=== PATIENT | female | born 1995 | race Caucasian/White ===

== ENCOUNTER 2017-10-12 11:36 | Emergency (ER) | payer SELFPAY ==
[~2017-10-12] VITALS: Ht 165.1 cm; Wt 91.0 kg
[~2017-10-12 11:36] MED LIST: PRIL20CA PO
[2017-10-12 11:37] VITALS: BP 129/70; PULSE 74; RESP 18; TEMP 98.6; O2SAT 100
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
== END 2017-10-12 11:53 | disposition left against medical advice (07) ==
LOC: NEPK 11:36
DX: S00.33XA Contusion of nose, initial encounter (principal); W50.0XXA Accidental hit or strike by another person, initial encounter
CPT/HCPCS: 99281

== ENCOUNTER 2017-12-12 08:57 | Observation (INO) | payer BC ==
[~2017-12-12] VITALS: Ht 165.1 cm; Wt 86.5 kg
[2017-12-12] VITALS (7 sets, daily range): BP systolic 104–126; BP diastolic 52–68; PULSE 52–118; RESP 16–20; TEMP 97.6–102.2; O2SAT 97–100
--- NOTE | 2017-12-12 09:29 | PD ---
HPI Chief Complaint: Cold / Flu Symptoms Time Seen by Provider: 09:15 Travel History International Travel<30 days: No Contact w/Intl Traveler<30days: No Traveled to known affect area: No History of Present Illness HPI 22yo F with PMH of pancreatitis presents to the ED with multiple complaints for 1 week. Said she has been having flu like symptoms such as cough, feeling hot/ cold, ear pain, decreased appetite, nausea. Pt also vomited today and had some abdominal discomfort but no pain right now. +Increased urinary frequency. Pt went to walk in clinic 3 days ago and was given azithromycin for URI. Denies any chest pain, sob, diarrhea, dysuria, hematuria, vaginal bleeding or discharge , focal weakness or numbness. PFSH Past Medical History Diminished Hearing: No Immunizations Current: Yes ?: Not LMP: NOV 2017 Past Surgical History Abdominal Surgery: No Cardiac Surgery: No Ear Surgery: No Endocrine Surgery: No Eye Surgery: No Genitourinary Surgery: No Gynecologic Surgery: No Neurologic Surgery: No Oral Surgery: No Thoracic Surgery: No Tonsillectomy: Yes Social History Alcohol Use: No Tobacco Use: No Substance Use: No Allergies-Medications (Allergen,Severity, Reaction): Coded Allergies: penicillin G (Unverified Allergy, Mild, Rash, 12/12/17) Reported Meds & Prescriptions Reported Meds & Active Scripts Active Reported Prilosec 20 mg (Omeprazole) 20 Mg Cap 40 Mg PO DAILY 30 Days TAKE 40MG ONCE DAILY FOR 30 DAYS. Review of Systems Except as stated in HPI: all other systems reviewed are Neg Physical Exam Narrative GENERAL: 22yo F in mild distress. SKIN: Focused skin assessment warm/dry. HEAD: Atraumatic. Normocephalic. EYES: Pupils equal and round. No scleral icterus. No injection or drainage. ENT: No nasal bleeding or discharge. Mucous membranes pink and moist. NECK: Trachea midline. No JVD. CARDIOVASCULAR: Mildly tachycardic. No murmur appreciated. RESPIRATORY: No accessory muscle use. Clear to auscultation. Breath sounds equal bilaterally. GASTROINTESTINAL: Abdomen soft, non-tender, nondistended. No rebound tenderness or guarding. MUSCULOSKELETAL: No obvious deformities. No clubbing. No cyanosis. No edema. NEUROLOGICAL: Awake and alert. No obvious cranial nerve deficits. Motor grossly within normal limits. Sensation intact. Normal speech. PSYCHIATRIC: Appropriate mood and affect; insight and judgment normal. Data Data Last Documented VS Vital Signs Date Time Temp Pulse Resp B/P (MAP) Pulse Ox O2 Delivery O2 Flow Rate FiO2 12/12/17 10:20 54 20 106/59 (75) 98 Room Air 12/12/17 09:02 97.7 Orders Orders Complete Blood Count With Diff (12/12/17 09:22) Comprehensive Metabolic Panel (12/12/17 09:22) Lipase (12/12/17 09:22) Urinalysis - C+S If Indicated (12/12/17 09:22) Ed Urine Pregnancytest Poc (12/12/17 09:22) Chest, Single Ap (12/12/17 ) Influenzae A/B Antigen (12/12/17 09:22) Sodium Chlor 0.9% 1000 Ml Inj (Ns 1000 M (12/12/17 09:30) Ondansetron Inj (Zofran Inj) (12/12/17 09:30) Urine Culture (12/12/17 09:40) Blood Culture (12/12/17 10:48) Lactic Acid Sepsis Protocol (12/12/17 10:48) Ciprofloxacin 400 Mg Premix (Cipro 400 M (12/12/17 11:00) Admit Order (Ed Use Only) (12/12/17 11:12) Labs Laboratory Tests Test 12/12/17 09:35 12/12/17 09:40 White Blood Count 7.6 TH/MM3 Red Blood Count 5.05 MIL/MM3 Hemoglobin 14.6 GM/DL Hematocrit 42.5 % Mean Corpuscular Volume 84.2 FL Mean Corpuscular Hemoglobin 28.9 PG Mean Corpuscular Hemoglobin Concent 34.3 % Red Cell Distribution Width 13.0 % Platelet Count 118 TH/MM3 Mean Platelet Volume 9.3 FL Neutrophils (%) (Auto) 39.0 % Lymphocytes (%) (Auto) 54.5 % Monocytes (%) (Auto) 5.5 % Eosinophils (%) (Auto) 0.6 % Basophils (%) (Auto) 0.4 % Neutrophils # (Auto) 3.0 TH/MM3 Lymphocytes # (Auto) 4.2 TH/MM3 Monocytes # (Auto) 0.4 TH/MM3 Eosinophils # (Auto) 0.0 TH/MM3 Basophils # (Auto) 0.0 TH/MM3 CBC Comment AUTO DIFF Differential Total Cells Counted 100 Neutrophils % (Manual) 38 % Band Neutrophils % 8 % Lymphocytes % 32 % Monocytes % 5 % Basophils % 3 % Neutrophils # (Manual) 3.5 TH/MM3 Differential Comment FINAL DIFF MANUAL Atypical Lymphocytes 14 % Platelet Estimate LOW Platelet Morphology Comment NORMAL Red Cell Morphology Comment NORMAL Blood Urea Nitrogen 10 MG/DL Creatinine 0.96 MG/DL Random Glucose 103 MG/DL Total Protein 8.0 GM/DL Albumin 4.3 GM/DL Calcium Level 9.5 MG/DL Alkaline Phosphatase 259 U/L Aspartate Amino Transf (AST/SGOT) 299 U/L Alanine Aminotransferase (ALT/SGPT) 529 U/L Total Bilirubin 0.7 MG/DL Sodium Level 138 MEQ/L Potassium Level 3.9 MEQ/L Chloride Level 102 MEQ/L Carbon Dioxide Level 25.2 MEQ/L Anion Gap 11 MEQ/L Estimat Glomerular Filtration Rate 74 ML/MIN Lipase 323 U/L Urine Color DARK-YELLOW Urine Turbidity HAZY Urine pH 6.0 Urine Specific [place] 1.028 Urine Protein 100 mg/dL Urine Glucose (UA) NEG mg/dL Urine Ketones NEG mg/dL Urine Occult Blood TRACE Urine Nitrite NEG Urine Bilirubin NEG Urine Urobilinogen 4.0 MG/DL Urine Leukocyte Esterase MOD Urine RBC 1 /hpf Urine WBC 10 /hpf Urine Squamous Epithelial Cells 6 /hpf Urine Bacteria OCC /hpf Urine Hyaline Casts 29 /lpf Urine Mucus FEW /lpf Microscopic Urinalysis Comment CULTURE INDICATED MDM Medical Decision Making Medical Screen Exam Complete: Yes Emergency Medical Condition: Yes Differential Diagnosis Influenza vs. viral syndrome vs. UTI vs. pneumonia Narrative Course 22yo F with flu like symptoms for 1 week. Labs reviewed, no leukocytosis but new thrombocytopenia at 118,000 and bandemia at 8%. Pt is tachycardic at 118bpm. LFTs elevated but pt has no abdominal pain. Likely viral. UA showed moderate leukocyte. WBC 10. +Hyaline casts. Pt given cipro IV and NS IVF. Pt reevaluated at bedside and feels a little better. Will observe pt overnight with IV antibiotics given bandemia, dehydration and new thrombocytopenia. Pt has no primary care physician. Discussed with Dr. Hussein and accepted to his service. Diagnosis Primary Impression: UTI (urinary tract infection) Qualified Codes: N39.0 - Urinary tract infection, site not specified Additional Impression: Dehydration Admitting Information Admitting Physician Requests: Observation Brigitte Lyon DO Dec 12, 2017 09:29
[2017-12-12] MEDS ORDERED: SODIUM CHLOR 0.9% 1000 ML INJ 1,000 ML IV ONE (09:30)
[2017-12-12] MEDS ORDERED: ONDANSETRON HCL 4 MG/2 ML VIAL IV PUSH ONE (09:30)
--- NOTE | 2017-12-12 09:59 | RADRPT ---
EXAM DATE/TIME: 12/12/2017 09:44 [place] COMPARISON: No previous studies available for comparison. INDICATIONS : Cough, shortness of breath, and fever. MEDICAL HISTORY : None. SURGICAL HISTORY : None. ENCOUNTER: Initial ACUITY: 4 - 6 days PAIN SCORE: 0/10 LOCATION: chest FINDINGS: A single view of the chest demonstrates the lungs to be symmetrically aerated without evidence of mas s, infiltrate or effusion. The cardiomediastinal contours are unremarkable. Osseous structures are intact. CONCLUSION: Normal examination. William Aguero Jr., MD on December 12, 2017 at 9:58 Board Certified Radiologist. This report was verified electronically.
[2017-12-12 10:01] LABS: BASOPHIL % 0.4 % (0.0-2.0); EOSINOPHIL % 0.6 % (0.0-4.0); HEMATOCRIT 42.5 % (35.0-46.0); HEMOGLOBIN 14.6 GM/DL (11.6-15.3); LYMPH % 54.5 % (9.0-44.0); LYMPHOCYTE # 4.2 TH/MM3 (1.0-4.8); MEAN CELL VOLUME 84.2 FL (80.0-100.0); MEAN CORPUSCULAR HEMOGLOBIN 28.9 PG (27.0-34.0); MEAN CORPUSCULAR HGB CONC 34.3 % (32.0-36.0); MEAN PLATELET VOLUME 9.3 FL (7.0-11.0); MONO % 5.5 % (0.0-8.0); MONOCYTE # 0.4 TH/MM3 (0-0.9); PLATELET COUNT 118 TH/MM3 (150-450); RED BLOOD COUNT 5.05 MIL/MM3 (4.00-5.30); WHITE BLOOD COUNT 7.6 TH/MM3 (4.0-11.0)
[2017-12-12 10:11] LABS: BACTERIA, URINE OCC /hpf; BLOOD, URINE TRACE (NEG); GLUCOSE,URINE NEG (NEG); HYALINE CAST, URINE 29 /lpf (RARE); KETONE, URINE NEG (NEG); MUCUS URINE FEW /lpf (OCC); NITRITE,URINE NEG (NEG); SQUAMOUS EPITHELIAL CELL URINE 6 /hpf (0-5); URINE COLOR DARK-YELLOW (YELLW/STRAW); URINE LEUKOCYTE ESTERASE MOD (NEG)
[2017-12-12 10:13] LABS: BILIRUBIN, URINE NEG (NEG)
[2017-12-12 10:25] LABS: ALBUMIN 4.3 GM/DL (3.4-5.0); ALT (GPT) 529 U/L (9-42); AST (GOT) 299 U/L (16-38); BICARBONATE 25.2 MEQ/L (21.0-32.0); BLOOD UREA NITROGEN 10 MG/DL (7-18); CALCIUM 9.5 MG/DL (8.5-10.1); CHLORIDE 102 MEQ/L (98-107); CREATININE 0.96 MG/DL (0.50-1.00); GLOMERULAR FILTRATION RATE 74 ML/MIN (>89); GLUCOSE,RANDOM 103 MG/DL (74-106); SODIUM (NA) 138 MEQ/L (136-145)
[2017-12-12 10:28] LABS: ALKALINE PHOSPHATASE 259 U/L (45-117); TOTAL BILIRUBIN ADULT 0.7 MG/DL (0.2-1.0)
[2017-12-12 10:34] LABS: ATYPICAL LYMPHOCYTES 14 % (0-0); BANDS 8 % (0-6); BASOPHILS 3 % (0-2); LYMPHOCYTES 32 % (9-44); MONOCYTES 5 % (0-8); NEUTROPHIL # MANUAL DIFF 3.5 TH/MM3 (1.8-7.7); POLYS (SEG NEUTROPHILS) 38 % (16-70)
[2017-12-12] MEDS ORDERED: CIPROFLOXACIN 400 MG PREMIX 200 ML IV ONE (11:00)
[2017-12-12] MEDS ORDERED: oxyCODONE/ACETAMINOPHEN 10 MG/325 MG TAB PO PRN (11:15)
[2017-12-12] MEDS ORDERED: ACETAMINOPHEN 325 MG TAB PO PRN ×2 (11:15)
[2017-12-12] MEDS ORDERED: LACTULOSE SYRUP 20 GM/30 ML CUP PO PRN (11:15)
[2017-12-12] MEDS ORDERED: SENNOSIDES 8.6 MG TAB PO PRN (11:15)
[2017-12-12] MEDS ORDERED: ONDANSETRON HCL 4 MG/2 ML VIAL IVP PRN (11:15)
[2017-12-12] MEDS ORDERED: oxyCODONE/ACETAMINOPHEN 5 MG/325 MG TAB PO PRN (11:15)
[2017-12-12] MEDS ORDERED: MORPHINE SULFATE 2 MG/ML INJ IV PUSH PRN ×2 (11:15)
[2017-12-12] MEDS ORDERED: MAGNESIUM HYDROXIDE SUSP 30 ML CUP PO PRN (11:15)
[2017-12-12] MEDS ORDERED: SODIUM CHLORIDE 0.9% FLUSH 10 ML FLUSH IV FLUSH PRN (11:15)
[2017-12-12] MEDS ORDERED: METOCLOPRAMIDE HCL 10 MG/2 ML VIAL IV PUSH PRN (11:15)
[2017-12-12] MEDS ORDERED: NALOXONE HCL 0.4 MG/ML AMP IV PUSH PRN (11:15)
[2017-12-12] MEDS ORDERED: BISACODYL 10 MG SUPP RECTAL PRN (11:15)
--- NOTE | 2017-12-12 11:38 | HHI.HP ---
[facility] Primary Care Physician No Primary Care Physician Admission Diagnosis UTI, dehydration, bandemia Diagnoses: (1) Elevated LFTs Diagnosis: Principal (2) Nausea & vomiting Diagnosis: Secondary (3) UTI (urinary tract infection) Diagnosis: Principal (4) Dehydration Diagnosis: Principal Chief Complaint: Cold and flulike symptoms Travel History International Travel<30 Days: No Contact w/Intl Traveler <30 Da: No Traveled to Known Affected Are: No History of Present Illness Patient is a 22-year-old female. Presented to the emergency department with complaint of cold-like symptoms for the past week. She has been having flulike symptoms such as cough, feeling hot and cold, ear pain, decreased appetite and some nausea. Had some vomiting today. And some abdominal discomfort no pain right now. Patient has had some increased urinary frequency. She was seen in a walk-in clinic 3 days ago was given azithromycin for URI. Denies any chest pain shortness of breath denies any diarrhea denies any hematuria denies any vaginal bleeding or discharge denies any focal weakness or numbness patient's past medical history significant for pancreatitis and tonsillectomy Review of Systems Constitutional: COMPLAINS OF: Fatigue, Fever, Chills, Change in appetite, DENIES: Diaphoretic episodes, Weight gain, Weight loss, Dizziness Endocrine: DENIES: Abnorml menstrual pattern, Heat/cold intolerance, Polydipsia , Polyuria, Polyphagia Eyes: DENIES: Blurred vision, Diplopia, Eye inflammation, Eye pain, Vision loss , Photosensitivity Ears, nose, mouth, throat: DENIES: Tinnitus, Hearing loss, Vertigo, Nasal discharge, Oral lesions, Throat pain, Hoarseness, Ear Pain, Running Nose Respiratory: DENIES: Apneas, Cough, Snoring, Wheezing, Hemoptysis, Sputum production, Shortness of breath Cardiovascular: DENIES: Chest pain, Palpitations, Syncope, Dyspnea on Exertion , PND, Lower Extremity Edema, Orthopnea Gastrointestinal: DENIES: Abdominal pain, Black stools, Bloody stools, Constipation, Diarrhea, Nausea, Vomiting, Difficulty Swallowing Genitourinary: COMPLAINS OF: Urinary frequency, Urgency, DENIES: Abnormal vaginal bleeding, Dysmenorrhea, Dyspareunia, Sexual dysfunction, Urinary incontinence, Hematuria, Dysuria, Nocturia, Vaginal discharge Musculoskeletal: COMPLAINS OF: Muscle aches, DENIES: Joint pain, Stiffness, Joint Swelling, Back pain Integumentary: DENIES: Abnormal pigmentation, Pruritus, Rash, Nail changes, Breast masses, Breast skin changes Hematologic/lymphatic: DENIES: Bruising, Lymphadenopathy Immunologic/allergic: DENIES: Eczema, Urticaria Neurologic: COMPLAINS OF: Headache, DENIES: Abnormal gait, Localized weakness, Paresthesias, Seizures, Speech Problems, Tremor, Poor Balance Psychiatric: DENIES: Anxiety, Confusion, Mood changes, Depression, Hallucinations, Agitation, Suicidal Ideation, Homicidal Ideation, Delusions Except as stated in HPI: all other systems reviewed are Neg Past Family Social History Past Medical History Pancreatitis Past Surgical History Tonsillectomy Reported Medications Reported Meds & Active Scripts Active Reported Prilosec 20 mg (Omeprazole) 20 Mg Cap 40 Mg PO DAILY 30 Days TAKE 40MG ONCE DAILY FOR 30 DAYS. Allergies: Coded Allergies: penicillin G (Unverified Allergy, Mild, Rash, 12/12/17) Active Ordered Medications Current Medications Sodium Chloride 1,000 ml @ 999 mls/hr BOLUS ONCE IV Last administered on at 09:58; Start 12/12/17 at 09:30; Stop 12/12/17 at 10:30; Status DC Ondansetron HCl (Zofran Inj) 4 mg ONCE ONCE IV PUSH Last administered on at 09:58; Start 12/12/17 at 09:30; Stop 12/12/17 at 09:31; Status DC Ciprofloxacin/ Dextrose 200 ml @ 200 mls/hr ONCE ONCE IV ; Start 12/12/17 at 11 :00; Stop 12/12/17 at 11:59 Sodium Chloride 1,000 ml @ 100 mls/hr Q10H IV ; Start 12/12/17 at 11:08; Status UNV Sodium Chloride (NS Flush) 2 ml UNSCH PRN IV FLUSH FLUSH AFTER USING IV ACCESS ; Start 12/12/17 at 11:15; Status UNV Sodium Chloride (NS Flush) 2 ml BID IV FLUSH ; Start 12/12/17 at 21:00; Status UNV Acetaminophen (Tylenol) 650 mg Q4H PRN PO TEMP > 100.4; Start 12/12/17 at 11:15 ; Status UNV Ondansetron HCl (Zofran Inj) 4 mg Q6H PRN IVP NAUSEA OR VOMITING; Start at 11:15; Status UNV Metoclopramide HCl (Reglan Inj) 5 mg Q6H PRN IV PUSH NAUSEA OR VOMITING; Start 12/12/17 at 11:15; Status UNV Acetaminophen (Tylenol) 650 mg Q6H PRN PO PAIN SCALE 1 TO 2; Start 12/12/17 at 11:15; Status UNV Oxycodone/ Acetaminophen (Percocet 5-325 Mg) 1 tab Q6H PRN PO PAIN SCALE 3 TO 5; Start 12/12/17 at 11:15; Status UNV Oxycodone/ Acetaminophen (Percocet 10-325 Mg) 1 tab Q6H PRN PO PAIN SCALE 6 TO 10; Start 12/12/17 at 11:15; Status UNV Morphine Sulfate (Morphine Inj) 2 mg Q3H PRN IV PUSH Pain 3-5; if PO NOT WORKING; Start 12/12/17 at 11:15; Status UNV Morphine Sulfate (Morphine Inj) 4 mg Q3H PRN IV PUSH Pain 6-10;if PO NOT WORKING; Start 12/12/17 at 11:15; Status UNV Naloxone HCl (Narcan Inj) 0.4 mg UNSCH PRN IV PUSH SEE LABEL COMMENTS; Start at 11:15; Status UNV Senna/Docusate Sodium (Lisa-Colace) 1 tab BID PO ; Start 12/12/17 at 21:00; Status UNV Magnesium Hydroxide (Milk Of Magnesia Liq) 30 ml Q12H PRN PO Mild constipation ; Start 12/12/17 at 11:15; Status UNV Sennosides (Senokot) 17.2 mg Q12H PRN PO Moderate constipation; Start 12/12/17 at 11:15; Status UNV Bisacodyl (Dulcolax Supp) 10 mg DAILY PRN RECTAL SEVERE CONSITIPATION; Start at 11:15; Status UNV Lactulose (Lactulose Liq) 30 ml DAILY PRN PO SEVERE CONSITIPATION; Start 3/3/ 18 at 11:15; Status UNV Family History Mother has diabetes Father's healthy Social History Denies any alcohol denies any tobacco denies any illicit drug use Physical Exam Vital Signs Vital Signs Date Time Temp Pulse Resp B/P (MAP) Pulse Ox O2 Delivery O2 Flow Rate FiO2 12/12/17 10:20 54 20 106/59 (75) 98 Room Air 12/12/17 09:02 97.7 118 16 126/68 (87) 99 Physical Exam GENERAL: This is a well-nourished, well-developed patient, in no apparent distress. SKIN: No rashes, ecchymoses or lesions. Cool and dry. HEAD: Atraumatic. Normocephalic. No temporal or scalp tenderness. EYES: Pupils equal round and reactive. Extraocular motions intact. No scleral icterus. No injection or drainage. ENT: Nose without bleeding, purulent drainage or septal hematoma. Throat without erythema, tonsillar hypertrophy or exudate. Uvula midline. Airway patent. NECK: Trachea midline. No JVD or lymphadenopathy. Supple, nontender, no meningeal signs. CARDIOVASCULAR: Regular rate and rhythm without murmurs, gallops, or rubs. RESPIRATORY: Clear to auscultation. Breath sounds equal bilaterally. No wheezes , rales, or rhonchi. GASTROINTESTINAL: Abdomen soft, non-tender, nondistended. No hepato-splenomegaly , or palpable masses. No guarding. MUSCULOSKELETAL: Extremities without clubbing, cyanosis, or edema. No joint tenderness, effusion, or edema noted. No calf tenderness. Negative Homans sign bilaterally. NEUROLOGICAL: Awake and alert. Cranial nerves II through XII intact. Motor and sensory grossly within normal limits. Five out of 5 muscle strength in all muscle groups. Normal speech. Insight and judgment is good Mood and behavior is appropriate Laboratory Laboratory Tests Test 12/12/17 09:35 12/12/17 09:40 12/12/17 11:15 White Blood Count 7.6 Red Blood Count 5.05 Hemoglobin 14.6 Hematocrit 42.5 Mean Corpuscular Volume 84.2 Mean Corpuscular Hemoglobin 28.9 Mean Corpuscular Hemoglobin Concent 34.3 Red Cell Distribution Width 13.0 Platelet Count 118 Mean Platelet Volume 9.3 Neutrophils (%) (Auto) 39.0 Lymphocytes (%) (Auto) 54.5 Monocytes (%) (Auto) 5.5 Eosinophils (%) (Auto) 0.6 Basophils (%) (Auto) 0.4 Neutrophils # (Auto) 3.0 Lymphocytes # (Auto) 4.2 Monocytes # (Auto) 0.4 Eosinophils # (Auto) 0.0 Basophils # (Auto) 0.0 CBC Comment AUTO DIFF Differential Total Cells Counted 100 Neutrophils % (Manual) 38 Band Neutrophils % 8 Lymphocytes % 32 Monocytes % 5 Basophils % 3 Neutrophils # (Manual) 3.5 Differential Comment FINAL DIFF MANUAL Atypical Lymphocytes 14 Platelet Estimate LOW Platelet Morphology Comment NORMAL Red Cell Morphology Comment NORMAL Blood Urea Nitrogen 10 Creatinine 0.96 Random Glucose 103 Total Protein 8.0 Albumin 4.3 Calcium Level 9.5 Alkaline Phosphatase 259 Aspartate Amino Transf (AST/SGOT) 299 Alanine Aminotransferase (ALT/SGPT) 529 Total Bilirubin 0.7 Sodium Level 138 Potassium Level 3.9 Chloride Level 102 Carbon Dioxide Level 25.2 Anion Gap 11 Estimat Glomerular Filtration Rate 74 Lipase 323 Urine Color DARK-YELLOW Urine Turbidity HAZY Urine pH 6.0 Urine Specific [place] 1.028 Urine Protein 100 Urine Glucose (UA) NEG Urine Ketones NEG Urine Occult Blood TRACE Urine Nitrite NEG Urine Bilirubin NEG Urine Urobilinogen 4.0 Urine Leukocyte Esterase MOD Urine RBC 1 Urine WBC 10 Urine Squamous Epithelial Cells 6 Urine Bacteria OCC Urine Hyaline Casts 29 Urine Mucus FEW Microscopic Urinalysis Comment CULTURE INDICATED Date/Time Source Procedure Growth Status 12/12/17 11:15 Blood Peripheral Aerobic Blood Culture Pending Received 12/12/17 11:15 Blood Peripheral Anaerobic Blood Culture Pending Received 12/12/17 09:35 Nasal Aspirate Influenza Types A,B Antigen (MICHAEL) - Final NEGATIVE FOR FLU A AND B ANTIGEN.... Complete 12/12/17 09:40 Urine Clean Catch Urine Culture Pending Received Result Diagram: 12/12/17 0935 12/12/17 0935 Imaging Last Impressions Chest X-Ray 12/12/17 0000 Signed Impressions: Service Date/Time: Tuesday, December 12, 2017 09:44 - CONCLUSION: Normal examination. MD Lolis Khan Jr. VTE Risk Assessment Andrei VTE Risk Assessment: No/Low Risk (score <= 1) Caprini Risk Assessment Model Point Value = 1 Point Value = 2 Point Value = 3 Point Value = 5 Age 41-60 Minor surgery BMI > 25 kg/m2 Swollen legs Varicose veins or History of unexplained or recurrent spontaneous Oral contraceptives or hormone replacement Sepsis (< 1 month) Serious lung disease, including pneumonia (< 1 month) Abnormal pulmonary function Acute myocardial infarction Congestive heart failure (< 1 month) History of inflammatory bowel disease Medical patient at bed rest Age 61-74 Arthroscopic surgery Major open surgery (> 45 min) Laparoscopic surgery (> 45 min) Malignancy Confined to bed (> 72 hours) Immobilizing plaster cast Central venous access Age >= 75 History of VTE Family history of VTE Factor V Leiden Prothrombin [id number] Lupus anticoagulant Anticardiolipin antibodies Elevated serum homocysteine Heparin-induced thrombocytopenia Other congenital or acquired thrombophilia Stroke (< 1 month) Elective arthroplasty Hip, pelvis, or leg fracture Acute spinal cord injury (< 1 month) Prophylaxis Regimen Total Risk Factor Score Risk Level Prophylaxis Regimen 0-1 Low Early ambulation 2 Moderate Order ONE of the following: *Sequential Compression Device (SCD) *Heparin 5000 units SQ BID 3-4 Higher Order ONE of the following medications: *Heparin 5000 units SQ TID *Enoxaparin/Lovenox 40 mg SQ daily (WT < 150 kg, CrCl > 30 mL/min) *Enoxaparin/Lovenox 30 mg SQ daily (WT < 150 kg, CrCl > 10-29 mL/min) *Enoxaparin/Lovenox 30 mg SQ BID (WT < 150 kg, CrCl > 30 mL/min) AND/OR *Sequential Compression Device (SCD) 5 or more Highest Order ONE of the following medications: *Heparin 5000 units SQ TID (Preferred with Epidurals) *Enoxaparin/Lovenox 40 mg SQ daily (WT < 150 kg, CrCl > 30 mL/min) *Enoxaparin/Lovenox 30 mg SQ daily (WT < 150 kg, CrCl > 10-29 mL/min) *Enoxaparin/Lovenox 30 mg SQ BID (WT < 150 kg, CrCl > 30 mL/min) AND *Sequential Compression Device (SCD) Assessment and Plan Assessment and Plan Sepsis syndrome continue on IV fluids continue on antibiotics Urinary tract infection/urosepsis/sepsis continue on IV fluids. Continue on IV Rocephin. Elevated LFTs we will get ultrasound of the abdomen as well as hepatitis panel Possible due to sepsis/viral syndrome Check fasting lipids History of pancreatitis check amylase and lipase in the a.m. GERD continue on Prilosec Continue on fluids for mild dehydration A.m. labs Hepatitis panel Increase activity Rocephin DVT prophylaxis with SCDs and ambulation GI prophylaxis with Prilosec Hopefully discharge tomorrow on oral antibiotic Code Status Full code Discussed Condition With Patient and RN and family and emergency room physician Problem Qualifiers (1) UTI (urinary tract infection): Qualified Codes: N39.0 - Urinary tract infection, site not specified Chadwick Figueroa DO Dec 12, 2017 11:38
--- NOTE | 2017-12-12 12:48 | RADRPT ---
EXAM DATE/TIME: 12/12/2017 11:48 [place] COMPARISON: No previous studies available for comparison. INDICATIONS : Abdominal pain. MEDICAL HISTORY : Pancreatitis. Headache. Apetite changes. Frequent, urgent urination. Muscle pain. Fever. Fatigue. SURGICAL HISTORY : Tonsillectomy. ENCOUNTER: Initial ACUITY: 1 day PAIN SCORE: 5/10 LOCATION: Bilateral Abdomen. MEASUREMENTS: LIVER: 18.9 cm length COMMON DUCT: 3 mm RIGHT KIDNEY: 11.0 x 5.7 x 4.4 cm LEFT KIDNEY: 10.7 x 4.5 x 3.2 cm SPLEEN: 11.9 cm length AORTA: 1.7 cm cm maximal FINDINGS: LIVER: Normal echotexture without focal lesion or ductal dilatation. COMMON DUCT: No intraluminal mass or stone visualized. GALLBLADDER: Contains no stones, demonstrates no wall thickening or pericholecystic fluid. PANCREAS: The visualized portions are within normal limits. RIGHT KIDNEY: No hydronephrosis, stone or mass. LEFT KIDNEY: No hydronephrosis, stone or mass. SPLEEN: Mildly prominent in size AORTA: Non aneurysmal. IVC: Within normal limits. CONCLUSION: Normal examination except mild prominent size of spleen is enlarged. Car Yost MD on December 12, 2017 at 12:45 Board Certified Radiologist. This report was verified electronically.
[2017-12-12] MEDS: PANTOPRAZOLE SOD 40 MG DELAYED RELEASE TAB PO SCH (13:06)
[2017-12-12] MEDS: cefTRIAXone INJ 1,000 MG in SODIUM CHLORIDE 0.9% INJ 100 ML IV SCH (13:10)
[2017-12-12] MEDS: SODIUM CHLOR 0.9% 1000 ML INJ 1,000 ML IV SCH (13:11)
[2017-12-12] MEDS: DOCUSATE SODIUM 50 MG/SENNA 8.6 MG TAB PO SCH (21:00)
[2017-12-13] MEDS: SODIUM CHLOR 0.9% 1000 ML INJ 1,000 ML IV SCH ×3 (00:08→10:17)
[2017-12-13] MEDS: SODIUM CHLORIDE 0.9% FLUSH 10 ML FLUSH IV FLUSH SCH ×2 (00:08→09:00)
[2017-12-13 04:18] VITALS: BP 91/46; PULSE 46; PULSE 56; RESP 17; TEMP 99.2; O2SAT 98
[2017-12-13 07:37] LABS: HEMATOCRIT 35.3 % (35.0-46.0); MEAN CELL VOLUME 84.2 FL (80.0-100.0); MEAN CORPUSCULAR HEMOGLOBIN 28.5 PG (27.0-34.0); MEAN CORPUSCULAR HGB CONC 33.9 % (32.0-36.0); MEAN PLATELET VOLUME 9.4 FL (7.0-11.0); PLATELET COUNT 120 TH/MM3 (150-450); RED CELL DISTRIBUTION WIDTH 12.7 % (11.6-17.2); WHITE BLOOD COUNT 7.5 TH/MM3 (4.0-11.0)
[2017-12-13 08:25] LABS: ALBUMIN 3.3 GM/DL (3.4-5.0); ALKALINE PHOSPHATASE 210 U/L (45-117); ALT (GPT) 435 U/L (9-42); AST (GOT) 221 U/L (16-38); BICARBONATE 24.5 MEQ/L (21.0-32.0); BLOOD UREA NITROGEN 8 MG/DL (7-18); CALCIUM 8.3 MG/DL (8.5-10.1); CHLORIDE 108 MEQ/L (98-107); CHOLESTEROL 102 MG/DL (120-200); CHOLESTEROL/ HDL RATIO 4.63 RATIO; CREATININE 0.77 MG/DL (0.50-1.00); FREE T4 1.05 NG/DL (0.76-1.46); GLOMERULAR FILTRATION RATE 96 ML/MIN (>89); GLUCOSE,RANDOM 88 MG/DL (74-106); LDL CHOLESTEROL 58 MG/DL (0-99); MAGNESIUM 2.1 MG/DL (1.5-2.5); PHOSPHORUS 4.2 MG/DL (2.5-4.9); SODIUM (NA) 142 MEQ/L (136-145); TOTAL BILIRUBIN ADULT 0.6 MG/DL (0.2-1.0); TOTAL PROTEIN 6.3 GM/DL (6.4-8.2); TRIGLYCERIDES 109 MG/DL (42-150)
[2017-12-13 08:29] VITALS: BP 93/54; PULSE 53; RESP 18; TEMP 98.1; O2SAT 100
[2017-12-13 08:51] LABS: ATYPICAL LYMPHOCYTES 20 % (0-0); BANDS 1 % (0-6); LYMPHOCYTES 60 % (9-44); NEUTROPHIL # MANUAL DIFF 1.5 TH/MM3 (1.8-7.7); POLYS (SEG NEUTROPHILS) 19 % (16-70)
[2017-12-13] MEDS: PANTOPRAZOLE SOD 40 MG DELAYED RELEASE TAB PO SCH (10:17)
[2017-12-13] MEDS: DOCUSATE SODIUM 50 MG/SENNA 8.6 MG TAB PO SCH (10:17)
[2017-12-13 10:38] LABS: HEMOGLOBIN A1C 5.4 % (4.3-6.0)
--- NOTE | 2017-12-13 11:56 | HHI.PR ---
Subjective Remarks Patient is a 22-year-old female. Presented to the emergency department with complaint of cold-like symptoms for the past week. She has been having flulike symptoms such as cough, feeling hot and cold, ear pain, decreased appetite and some nausea. Had some vomiting today. And some abdominal discomfort no pain right now. Patient has had some increased urinary frequency. She was seen in a walk-in clinic 3 days ago was given azithromycin for URI. Denies any chest pain shortness of breath denies any diarrhea denies any hematuria denies any vaginal bleeding or discharge denies any focal weakness or numbness patient's past medical history significant for pancreatitis and tonsillectomy 3-4 patient has had ultrasound of the abdomen only showed slightly elevated spleen Hepatitis panel still pending LFTs have slightly decreased Cholesterol panel is stable Can be discharged home on Ceftin 250 mg 1 p.o. twice daily for 10 days #20 I have discussed with patient and RN and mother VIRAL SYNDROME Objective Vitals Vital Signs Date Time Temp Pulse Resp B/P (MAP) Pulse Ox O2 Delivery O2 Flow Rate FiO2 12/13/17 08:29 98.1 53 18 93/54 (67) 100 12/13/17 04:18 99.2 46 17 91/46 (61) 98 12/12/17 23:48 102.2 95 17 108/54 (72) 97 12/12/17 19:39 98.0 66 17 115/63 (80) 100 12/12/17 15:48 97.6 55 20 104/52 (69) 100 12/12/17 14:31 98.0 52 16 105/56 (72) 100 12/12/17 13:11 68 16 104/61 (75) 99 I/O 12/12/17 12/12/17 12/12/17 12/13/17 12/13/17 12/13/17 07:00 15:00 23:00 07:00 15:00 23:00 Intake Total 1000 ml Balance 1000 ml Intake IV Total 1000 ml # Voids 1 2 Result Diagram: 12/13/17 0602 12/13/17 0602 Other Results Laboratory Tests Test 12/12/17 09:35 12/12/17 09:40 12/12/17 11:15 12/13/17 06:02 White Blood Count 7.6 TH/MM3 7.5 TH/MM3 Red Blood Count 5.05 MIL/MM3 4.20 MIL/MM3 Hemoglobin 14.6 GM/DL 12.0 GM/DL Hematocrit 42.5 % 35.3 % Mean Corpuscular Volume 84.2 FL 84.2 FL Mean Corpuscular Hemoglobin 28.9 PG 28.5 PG Mean Corpuscular Hemoglobin Concent 34.3 % 33.9 % Red Cell Distribution Width 13.0 % 12.7 % Platelet Count 118 TH/MM3 120 TH/MM3 Mean Platelet Volume 9.3 FL 9.4 FL Neutrophils (%) (Auto) 39.0 % Lymphocytes (%) (Auto) 54.5 % Monocytes (%) (Auto) 5.5 % Eosinophils (%) (Auto) 0.6 % Basophils (%) (Auto) 0.4 % Neutrophils # (Auto) 3.0 TH/MM3 Lymphocytes # (Auto) 4.2 TH/MM3 Monocytes # (Auto) 0.4 TH/MM3 Eosinophils # (Auto) 0.0 TH/MM3 Basophils # (Auto) 0.0 TH/MM3 CBC Comment AUTO DIFF AUTO DIFF Differential Total Cells Counted 100 100 Neutrophils % (Manual) 38 % 19 % Band Neutrophils % 8 % 1 % Lymphocytes % 32 % 60 % Monocytes % 5 % Basophils % 3 % Neutrophils # (Manual) 3.5 TH/MM3 1.5 TH/MM3 Differential Comment FINAL DIFF MANUAL FINAL DIFF MANUAL Atypical Lymphocytes 14 % 20 % Platelet Estimate LOW LOW Platelet Morphology Comment NORMAL NORMAL Red Cell Morphology Comment NORMAL NORMAL Blood Urea Nitrogen 10 MG/DL 8 MG/DL Creatinine 0.96 MG/DL 0.77 MG/DL Random Glucose 103 MG/DL 88 MG/DL Total Protein 8.0 GM/DL 6.3 GM/DL Albumin 4.3 GM/DL 3.3 GM/DL Calcium Level 9.5 MG/DL 8.3 MG/DL Alkaline Phosphatase 259 U/L 210 U/L Aspartate Amino Transf (AST/SGOT) 299 U/L 221 U/L Alanine Aminotransferase (ALT/SGPT) 529 U/L 435 U/L Total Bilirubin 0.7 MG/DL 0.6 MG/DL Sodium Level 138 MEQ/L 142 MEQ/L Potassium Level 3.9 MEQ/L 4.3 MEQ/L Chloride Level 102 MEQ/L 108 MEQ/L Carbon Dioxide Level 25.2 MEQ/L 24.5 MEQ/L Anion Gap 11 MEQ/L 10 MEQ/L Estimat Glomerular Filtration Rate 74 ML/MIN 96 ML/MIN Lipase 323 U/L 318 U/L Urine Color DARK-YELLOW Urine Turbidity HAZY Urine pH 6.0 Urine Specific [place] 1.028 Urine Protein 100 mg/dL Urine Glucose (UA) NEG mg/dL Urine Ketones NEG mg/dL Urine Occult Blood TRACE Urine Nitrite NEG Urine Bilirubin NEG Urine Urobilinogen 4.0 MG/DL Urine Leukocyte Esterase MOD Urine RBC 1 /hpf Urine WBC 10 /hpf Urine Squamous Epithelial Cells 6 /hpf Urine Bacteria OCC /hpf Urine Hyaline Casts 29 /lpf Urine Mucus FEW /lpf Microscopic Urinalysis Comment CULTURE INDICATED Lactic Acid Level 1.4 mmol/L Phosphorus Level 4.2 MG/DL Magnesium Level 2.1 MG/DL Hemoglobin A1c 5.4 % Triglycerides Level 109 MG/DL Cholesterol Level 102 MG/DL LDL Cholesterol 58 MG/DL HDL Cholesterol 22.0 MG/DL Cholesterol/HDL Ratio 4.63 RATIO Amylase Level 62 U/L Free Thyroxine 1.05 NG/DL Thyroid Stimulating Hormone 3rd Gen 1.850 uIU/ML Imaging Last Impressions Chest X-Ray 12/12/17 0000 Signed Impressions: Service Date/Time: Tuesday, December 12, 2017 09:44 - CONCLUSION: Normal examination. William Aguero Jr., MD Abdomen Ultrasound 12/12/17 0000 Signed Impressions: Service Date/Time: Tuesday, December 12, 2017 11:48 - CONCLUSION: Normal examination except mild prominent size of spleen is enlarged. Car Yost MD Objective Remarks GENERAL: This is a well-nourished, well-developed patient, in no apparent distress. SKIN: No rashes, ecchymoses or lesions. Cool and dry. HEAD: Atraumatic. Normocephalic. No temporal or scalp tenderness. EYES: Pupils equal round and reactive. Extraocular motions intact. No scleral icterus. No injection or drainage. ENT: Nose without bleeding, purulent drainage or septal hematoma. Throat without erythema, tonsillar hypertrophy or exudate. Uvula midline. Airway patent. NECK: Trachea midline. No JVD or lymphadenopathy. Supple, nontender, no meningeal signs. CARDIOVASCULAR: Regular rate and rhythm without murmurs, gallops, or rubs. RESPIRATORY: Clear to auscultation. Breath sounds equal bilaterally. No wheezes , rales, or rhonchi. GASTROINTESTINAL: Abdomen soft, non-tender, nondistended. No hepato-splenomegaly , or palpable masses. No guarding. MUSCULOSKELETAL: Extremities without clubbing, cyanosis, or edema. No joint tenderness, effusion, or edema noted. No calf tenderness. Negative Homans sign bilaterally. NEUROLOGICAL: Awake and alert. Cranial nerves II through XII intact. Motor and sensory grossly within normal limits. Five out of 5 muscle strength in all muscle groups. Normal speech. Insight and judgment is good Mood and behavior is appropriate Procedures NONE Medications and IVs Current Medications Sodium Chloride 1,000 ml @ 999 mls/hr BOLUS ONCE IV Last administered on 09:58; Start 12/12/17 at 09:30; Stop 12/12/17 at 10:30; Status DC Ondansetron HCl (Zofran Inj) 4 mg ONCE ONCE IV PUSH Last administered on 09:58; Start 12/12/17 at 09:30; Stop 12/12/17 at 09:31; Status DC Ciprofloxacin/ Dextrose 200 ml @ 200 mls/hr ONCE ONCE IV Last administered on 12/12/17at 13:09; Start 12/12/17 at 11:00; Stop 12/12/17 at 11:59; Status DC Sodium Chloride 1,000 ml @ 100 mls/hr Q10H IV Last administered on 12/13/17at 10 :17; Start 12/12/17 at 11:08 Sodium Chloride (NS Flush) 2 ml UNSCH PRN IV FLUSH FLUSH AFTER USING IV ACCESS ; Start 12/12/17 at 11:15 Sodium Chloride (NS Flush) 2 ml BID IV FLUSH Last administered on 12/13/17at 00: 08; Start 12/12/17 at 21:00 Acetaminophen (Tylenol) 650 mg Q4H PRN PO TEMP > 100.4 Last administered on 12/12at 23:59; Start 12/12/17 at 11:15 Ondansetron HCl (Zofran Inj) 4 mg Q6H PRN IVP NAUSEA OR VOMITING; Start at 11:15 Metoclopramide HCl (Reglan Inj) 5 mg Q6H PRN IV PUSH NAUSEA OR VOMITING; Start 12/12/17 at 11:15 Acetaminophen (Tylenol) 650 mg Q6H PRN PO PAIN SCALE 1 TO 2; Start 12/12/17 at 11:15 Oxycodone/ Acetaminophen (Percocet 5-325 Mg) 1 tab Q6H PRN PO PAIN SCALE 3 TO 5; Start 12/12/17 at 11:15 Oxycodone/ Acetaminophen (Percocet 10-325 Mg) 1 tab Q6H PRN PO PAIN SCALE 6 TO 10; Start 12/12/17 at 11:15 Morphine Sulfate (Morphine Inj) 2 mg Q3H PRN IV PUSH Pain 3-5; if PO NOT WORKING; Start 12/12/17 at 11:15 Morphine Sulfate (Morphine Inj) 4 mg Q3H PRN IV PUSH Pain 6-10;if PO NOT WORKING; Start 12/12/17 at 11:15 Naloxone HCl (Narcan Inj) 0.4 mg UNSCH PRN IV PUSH SEE LABEL COMMENTS; Start at 11:15 Senna/Docusate Sodium (Lisa-Colace) 1 tab BID PO Last administered on 12/13/17at 10:17; Start 12/12/17 at 21:00 Magnesium Hydroxide (Milk Of Magnesia Liq) 30 ml Q12H PRN PO Mild constipation ; Start 12/12/17 at 11:15 Sennosides (Senokot) 17.2 mg Q12H PRN PO Moderate constipation; Start 12/12/17 at 11:15 Bisacodyl (Dulcolax Supp) 10 mg DAILY PRN RECTAL SEVERE CONSITIPATION; Start at 11:15 Lactulose (Lactulose Liq) 30 ml DAILY PRN PO SEVERE CONSITIPATION; Start at 11:15 Ceftriaxone Sodium 1000 mg/ Sodium Chloride 100 ml @ 200 mls/hr Q24H IV Last administered on 12/12/17at 13:10; Start 12/12/17 at 12:00 Pantoprazole Sodium (Protonix) 40 mg DAILY PO Last administered on 12/13/17at 10: 17; Start 12/12/17 at 11:30 A/P Problem List: (1) Elevated LFTs ICD Code: R79.89 - Other specified abnormal findings of blood chemistry (2) Nausea & vomiting ICD Code: R11.2 - Nausea with vomiting, unspecified (3) UTI (urinary tract infection) ICD Code: N39.0 - Urinary tract infection, site not specified Status: Acute (4) Dehydration ICD Code: E86.0 - Dehydration Status: Acute Assessment and Plan Sepsis syndrome continue on IV fluids continue on antibiotics-SWITCH TO CEFTIN TODAY AND DC Urinary tract infection/urosepsis/sepsis continue on IV fluids. Continue on IV Rocephin.- SWITCH TO CEFTIN Elevated LFTs we will get ultrasound of the abdomen as well as hepatitis panel- TRENDING DOWN Possible due to sepsis/viral syndrome Check fasting lipids--STAB;E History of pancreatitis check amylase and lipase in the a.m. GERD continue on Prilosec Continue on fluids for mild dehydration-IMPROVED VIRAL SYNDROME A.m. labs Hepatitis panel PENDING Increase activity Rocephin DVT prophylaxis with SCDs and ambulation GI prophylaxis with Prilosec SWITCH TO CEFTIN FOLLOW UP PCP FOLLOW UP GI REGARDING LFTS Discharge Planning DC TO HOME Problem Qualifiers (1) UTI (urinary tract infection): Qualified Codes: N39.0 - Urinary tract infection, site not specified Chadwick Figueroa DO Dec 13, 2017 11:56
[2017-12-13] MEDS ORDERED: CEFU1TAB18 PO (11:58)
--- NOTE | 2017-12-13 11:59 | HHI.DS ---
Discharge Summary Admission Date Dec 12, 2017 at 11:13 Discharge Date: Dec 13, 2017 Admitting Diagnosis UTI, dehydration, bandemia (1) Elevated LFTs ICD Code: R79.89 - Other specified abnormal findings of blood chemistry Diagnosis: Principal (2) Nausea & vomiting ICD Code: R11.2 - Nausea with vomiting, unspecified Diagnosis: Secondary (3) UTI (urinary tract infection) ICD Code: N39.0 - Urinary tract infection, site not specified Diagnosis: Principal Status: Acute (4) Dehydration ICD Code: E86.0 - Dehydration Diagnosis: Principal Status: Acute Procedures NONE Brief History - From Admission Patient is a 22-year-old female. Presented to the emergency department with complaint of cold-like symptoms for the past week. She has been having flulike symptoms such as cough, feeling hot and cold, ear pain, decreased appetite and some nausea. Had some vomiting today. And some abdominal discomfort no pain right now. Patient has had some increased urinary frequency. She was seen in a walk-in clinic 3 days ago was given azithromycin for URI. Denies any chest pain shortness of breath denies any diarrhea denies any hematuria denies any vaginal bleeding or discharge denies any focal weakness or numbness patient's past medical history significant for pancreatitis and tonsillectomy CBC/BMP: 12/13/17 0602 12/13/17 0602 Significant Findings Laboratory Tests Test 12/12/17 09:35 12/12/17 09:40 12/12/17 11:15 12/13/17 06:02 Platelet Count 118 TH/MM3 (150-450) 120 TH/MM3 (150-450) Lymphocytes (%) (Auto) 54.5 % (9.0-44.0) Band Neutrophils % 8 % (0-6) Basophils % 3 % (0-2) Atypical Lymphocytes 14 % (0-0) 20 % (0-0) Platelet Estimate LOW (NORMAL) LOW (NORMAL) Alkaline Phosphatase 259 U/L (45-117) 210 U/L (45-117) Aspartate Amino Transf (AST/SGOT) 299 U/L (16-38) 221 U/L (16-38) Alanine Aminotransferase (ALT/SGPT) 529 U/L (9-42) 435 U/L (9-42) Estimat Glomerular Filtration Rate 74 ML/MIN (>89) Urine Color DARK-YELLOW (YELLW/STRAW) Urine Turbidity HAZY (CLEAR) Urine Protein 100 mg/dL (NEG-TRACE) Urine Occult Blood TRACE (NEG) Urine Urobilinogen 4.0 MG/DL (LESS THAN Urine Leukocyte Esterase MOD (NEG) Urine WBC 10 /hpf (0-5) Urine Bacteria OCC /hpf (NONE) Urine Mucus FEW /lpf (OCC) Lymphocytes % 60 % (9-44) Neutrophils # (Manual) 1.5 TH/MM3 (1.8-7.7) Total Protein 6.3 GM/DL (6.4-8.2) Albumin 3.3 GM/DL (3.4-5.0) Calcium Level 8.3 MG/DL (8.5-10.1) Chloride Level 108 MEQ/L (98-107) Cholesterol Level 102 MG/DL (120-200) HDL Cholesterol 22.0 MG/DL (40.0-60.0) Imaging Last Impressions Chest X-Ray 12/12/17 0000 Signed Impressions: Service Date/Time: Tuesday, December 12, 2017 09:44 - CONCLUSION: Normal examination. William Aguero Jr., MD Abdomen Ultrasound 12/12/17 0000 Signed Impressions: Service Date/Time: Tuesday, December 12, 2017 11:48 - CONCLUSION: Normal examination except mild prominent size of spleen is enlarged. Car Yost MD PE at Discharge GENERAL: This is a well-nourished, well-developed patient, in no apparent distress. SKIN: No rashes, ecchymoses or lesions. Cool and dry. HEAD: Atraumatic. Normocephalic. No temporal or scalp tenderness. EYES: Pupils equal round and reactive. Extraocular motions intact. No scleral icterus. No injection or drainage. ENT: Nose without bleeding, purulent drainage or septal hematoma. Throat without erythema, tonsillar hypertrophy or exudate. Uvula midline. Airway patent. NECK: Trachea midline. No JVD or lymphadenopathy. Supple, nontender, no meningeal signs. CARDIOVASCULAR: Regular rate and rhythm without murmurs, gallops, or rubs. RESPIRATORY: Clear to auscultation. Breath sounds equal bilaterally. No wheezes , rales, or rhonchi. GASTROINTESTINAL: Abdomen soft, non-tender, nondistended. No hepato-splenomegaly , or palpable masses. No guarding. MUSCULOSKELETAL: Extremities without clubbing, cyanosis, or edema. No joint tenderness, effusion, or edema noted. No calf tenderness. Negative Homans sign bilaterally. NEUROLOGICAL: Awake and alert. Cranial nerves II through XII intact. Motor and sensory grossly within normal limits. Five out of 5 muscle strength in all muscle groups. Normal speech. Insight and judgment is good Mood and behavior is appropriate Hospital Course Patient is a 22-year-old female. Presented to the emergency department with complaint of cold-like symptoms for the past week. She has been having flulike symptoms such as cough, feeling hot and cold, ear pain, decreased appetite and some nausea. Had some vomiting today. And some abdominal discomfort no pain right now. Patient has had some increased urinary frequency. She was seen in a walk-in clinic 3 days ago was given azithromycin for URI. Denies any chest pain shortness of breath denies any diarrhea denies any hematuria denies any vaginal bleeding or discharge denies any focal weakness or numbness patient's past medical history significant for pancreatitis and tonsillectomy 3-4 patient has had ultrasound of the abdomen only showed slightly elevated spleen Hepatitis panel still pending LFTs have slightly decreased Cholesterol panel is stable Can be discharged home on Ceftin 250 mg 1 p.o. twice daily for 10 days #20 I have discussed with patient and RN and mother Will discharge to home today Pt Condition on Discharge: Good Discharge Disposition: Discharge Home Discharge Time: <= 30 minutes Discharge Instructions DIET: Follow Instructions for: As Tolerated, No Restrictions, Heart Healthy Diet Speech Therapy-Diet Recommends: Regular Activities you can perform: Regular-No Restrictions Follow up Referrals: PCP Follow-up - 2-3 Days New Medications: Cefuroxime (Ceftin) 250 Mg Tab 250 MG PO BID for Infection for 10 Days, #20 TAB Continued Medications: Omeprazole 20 mg (Prilosec 20 mg) 20 Mg Cap 40 MG PO DAILY for 30 Days, CAP TAKE 40MG ONCE DAILY FOR 30 DAYS. Chadwick Figueroa DO Dec 13, 2017 11:59
[2017-12-13] MEDS: cefTRIAXone INJ 1,000 MG in SODIUM CHLORIDE 0.9% INJ 100 ML IV SCH (12:21)
[2017-12-13 13:15] VITALS: BP 110/56; PULSE 61; RESP 18; TEMP 98.2; O2SAT 99
[2017-12-14 10:32] LABS: HEPATITIS A AB IGM NEGATIVE (NEGATIVE); HEPATITIS B CORE AB IGM NEGATIVE (NEGATIVE); HEPATITIS B SURFACE ANTIGEN NEGATIVE (NEGATIVE); HEPATITIS C AB IgG NEGATIVE (NEGATIVE)
== END 2017-12-13 14:22 | disposition home or self-care (01) ==
LOC: NEPD 08:57 → NEDA 11:13 → NEPGCP 13:10
PROVIDERS: ADMIT Hospitalist; ATTEND Hospitalist
DX: A41.9 Sepsis, unspecified organism (principal); N39.0 Urinary tract infection, site not specified; R79.89 Other specified abnormal findings of blood chemistry; E86.0 Dehydration; D69.6 Thrombocytopenia, unspecified; B34.9 Viral infection, unspecified; R06.02 Shortness of breath; R16.1 Splenomegaly, not elsewhere classified; K21.9 Gastro-esophageal reflux disease without esophagitis
CPT/HCPCS: 71045; 76700; 80053; 80061; 80074; 81001; 82150; 83036; 83605; 83690; 83735; 84100; 84439; 84443; 84703; 85007; 85027; 87040; 87086; 87804; 96361; 96365; 96375; 99285; G0378; J0696; J0744; J2405; J7030